=== PATIENT | male | born 1960 | race Caucasian/White ===

== ENCOUNTER → 2019-01-11 08:02 | Outpatient (CLI) | payer OTHER, SELFPAY ==
--- NOTE | 2019-01-11 08:50 | PM.TREADMILL ---
Cardiac Stress Test Report Referral & Results Date Patient Seen: 01/11/19 Time Patient Seen: 08:30 Requesting provider: Sae Del Rosario Indication: Atypical chest pain Rest ECG: NSR Procedure Note: Today following both written and verbal informed consent, the patient was exercised according to a standard Carlos protocol. The patient exercised for a total of 9:10 achieving a maximum heart rate of 136. Patient's maximum systolic blood pressure was 130/90. This was an estimated 10.1 MET's. Heart rate and blood pressure targets met. Test discontinued when patient was unable to continue and complained of pain in the right calf. No chest pain or other symptoms of ischemia. Down sloping ST deviations of approximately 2 mm in the inferior leads that rapidly resolved with rest. 0% DENISA on the active scale. Impression: Intermediate risk of ischemia. Santa treadmill score of -1 indicates 5-year survival of 90%. Please note: Actual ECG tracings can be found in the PACS system.
== END ==
PROVIDERS: Visit Provider Obstetrics & Gynecology Reproductive Endocrinology
DX: R07.89 Other chest pain (principal)
CPT/HCPCS: 93016; 93017; 93018